=== PATIENT | male | born 1960 | race Caucasian/White ===

== ENCOUNTER → 2022-06-18 | Day surgery (SDC) | payer MEDICAID, OTHER ==
[~2022-06-18] MED LIST: Albuterol 0.083% 2.5 MG/3 ML Neb Soln INH ONE; Albuterol 0.083% 2.5 MG/3 ML Neb Soln ONE; Ketamine 500 mg/10 ML MDV ONE; Lactated Ringers 1,000 ML IV ONE; Lidocaine 4% Top Soln 50 ML Bottle ONE; Propofol 200 MG/20 ML SDV ONE; ePHEDrine 50 MG/ML SDV ONE; fentaNYL 100 MCG/2 ML SDV ONE
== END ==
LOC: JD.SDS 06:00
PROVIDERS: ATTEND Surgery
DX: K29.50 Unspecified chronic gastritis without bleeding (principal); K29.80 Duodenitis without bleeding; K57.30 Diverticulosis of large intestine without perforation or abscess without bleeding; K21.9 Gastro-esophageal reflux disease without esophagitis; F17.210 Nicotine dependence, cigarettes, uncomplicated; I10 Essential (primary) hypertension; G47.30 Sleep apnea, unspecified; J43.9 Emphysema, unspecified; Z98.890 Other specified postprocedural states; Z79.899 Other long term (current) drug therapy
CPT/HCPCS: 43239; A9270; J2704; J3010; J3490; J7120; 00731

== ENCOUNTER 2022-11-16 12:10 | Inpatient (IN) | payer MEDICARE, OTHER ==
[2022-11-16] MEDS: Dextrose 5%-Lactated Ringers 1,000 ML IV SCH ×2 (13:13→13:49)
[2022-11-16] MEDS ORDERED: cefTRIAXone 2 GM in Sodium Chloride 0.9% 100 ML IV ONE (13:40)
[2022-11-16] MEDS ORDERED: Dextrose 5%-Lactated Ringers 1,000 ML IV SCH (14:15)
[2022-11-16] MEDS ORDERED: Magnesium Sulfate/Water 4 GM in Premix Bag 1 BAG IV ONE (14:20)
[2022-11-16] MEDS ORDERED: Sodium Chloride 0.9% 1,000 ML IV SCH (15:00)
[2022-11-16] MEDS: Potassium Chloride 10 MEQ in Premix Bag 1 BAG IV SCH ×2 (15:35→16:48)
[2022-11-16] MEDS ORDERED: Piperacillin/Tazobactam 4.5 GM in Sodium Chloride 0.9% 100 ML IV ONE (15:43)
[2022-11-16] MEDS ORDERED: Norepinephrine 4 MG in Dextrose 5% in Water 246 ML IV SCH ×2 (15:45)
[2022-11-17] MEDS ORDERED: HYDROmorphone 0.5 MG/0.5 ML Syringe IVPUSH ONE (05:31)
[2022-11-17] MEDS ORDERED: Glycopyrrolate 0.2 MG/ML SDV IVPUSH PRN (11:57)
[2022-11-17] MEDS ORDERED: Albuterol 0.083% 2.5 MG/3 ML Neb Soln INH PRN ×2 (11:57→12:20)
[2022-11-17] MEDS ORDERED: LORazepam 2 MG/ML SDV IVPUSH PRN (12:00)
[2022-11-17] MEDS ORDERED: Scopolamine 1.5 MG Transdermal Patch TRDERM SCH (12:00)
[2022-11-17] MEDS ORDERED: Ondansetron 4 MG/2 ML SDV IV PRN (12:02)
[2022-11-17] MEDS: Albuterol/Ipratropium 3.0-0.5 MG/3 ML Neb Soln NEB PRN ×2 (13:06→20:24)
[2022-11-17] MEDS: Morphine 4 MG/ML Syringe IVPUSH PRN ×2 (14:01→20:11)
[2022-11-17] MEDS: Codeine/Promethazine 10-6.25 MG/5 ML Syrup 5 ML UD Cup PO SCH ×3 (14:02→20:10)
[2022-11-18] MEDS: Codeine/Promethazine 10-6.25 MG/5 ML Syrup 5 ML UD Cup PO SCH ×8 (01:36→20:20)
[2022-11-18] MEDS: Morphine 4 MG/ML Syringe IVPUSH PRN ×6 (02:29→20:17)
[2022-11-18] MEDS: Albuterol/Ipratropium 3.0-0.5 MG/3 ML Neb Soln NEB PRN ×4 (02:34→20:38)
[2022-11-18] MEDS ORDERED: FLUTICASONE INH SCH (09:00)
[2022-11-18] MEDS ORDERED: VILANTER INH SCH (09:00)
[2022-11-18] MEDS ORDERED: UMECLIDIN INH SCH (09:00)
[2022-11-18] MEDS ORDERED: diphenhydrAMINE 50 MG/ML SDV IVPUSH PRN (09:33)
[2022-11-18] MEDS ORDERED: LORazepam 2 MG/ML SDV IM PRN (09:38)
[2022-11-18] MEDS ORDERED: LORazepam 2 MG/ML SDV IVPUSH ONE (09:43)
[2022-11-18] MEDS ORDERED: diphenhydrAMINE 50 MG/ML SDV IVPUSH ONE (09:45)
[2022-11-18] MEDS: LORazepam 2 MG/ML SDV IVPUSH PRN ×2 (10:11→21:26)
[2022-11-18] MEDS ORDERED: Acetaminophen 650 MG Supp RECTAL PRN (10:41)
== END 2022-11-19 00:12 | disposition expired | DRG 951 ==
LOC: JD.ED 12:10 → EDBD 12:10 → JD.MS 11-17 10:32 → MERGE 11-17 16:30 → OBSVTOIN 11-17 16:30
PROVIDERS: ADMIT Internal Medicine; ATTEND Internal Medicine
DX: Z51.5 Encounter for palliative care (principal); J96.21 Acute and chronic respiratory failure with hypoxia; C34.90 Malignant neoplasm of unspecified part of unspecified bronchus or lung; I50.42 Chronic combined systolic (congestive) and diastolic (congestive) heart failure; I42.9 Cardiomyopathy, unspecified; R57.1 Hypovolemic shock; K22.4 Dyskinesia of esophagus; R13.10 Dysphagia, unspecified; E86.0 Dehydration; K80.20 Calculus of gallbladder without cholecystitis without obstruction; I25.10 Atherosclerotic heart disease of native coronary artery without angina pectoris; I71.40 Abdominal aortic aneurysm, without rupture, unspecified; I11.0 Hypertensive heart disease with heart failure; I48.91 Unspecified atrial fibrillation; Z66 Do not resuscitate; R78.5 Finding of other psychotropic drug in blood; J44.9 Chronic obstructive pulmonary disease, unspecified; E87.6 Hypokalemia; E83.42 Hypomagnesemia; D64.9 Anemia, unspecified; I46.9 Cardiac arrest, cause unspecified; Z79.899 Other long term (current) drug therapy; Z98.890 Other specified postprocedural states; Z99.81 Dependence on supplemental oxygen; Z79.51 Long term (current) use of inhaled steroids; Z79.82 Long term (current) use of aspirin; Z87.891 Personal history of nicotine dependence
CPT/HCPCS: 36415; 71045; 71045-26; 71260; 71260-26; 80053; 80162; 83605; 83735; 83880; 85025; 85610; 86140; 87040; 93005; 94640; 94761; 96365; 96367; 96368; 96375; 99285; 99285-25; A9270-GY; J0696; J1170; J1200; J2060; J2270; J3475; J3480; J3490; J7030; J7060; J7121; J7620-GY